=== PATIENT | female | born 1945 | race African-American/Black ===

== ENCOUNTER 2018-05-09 16:48 | Emergency (ER) | payer MEDICARE, BC ==
[~2018-05-09] VITALS: Ht 167.6 cm; Wt 84.0 kg
[~2018-05-09 16:48] MED LIST: AMLO5TAB88 PO; ASPI-1158 PO; LEVO250S PO; LEVO75TA PO; LOSA100T3 PO; MECL25TA3 PO; NIAC750T3 PO; OMEP20CA4 PO
[2018-05-09 17:05] VITALS: BP 158/81
== END 2018-05-09 21:30 | disposition left against medical advice (07) ==
LOC: ER 16:48
DX: R07.0 Pain in throat (principal)
CPT/HCPCS: 99281